=== PATIENT | female | born 1960 | race Caucasian/White ===

== ENCOUNTER → 2017-03-03 | Outpatient (CLI) | payer MEDICAID ==
[~2017-03-03] MED LIST: ALBUTEROL INH INH; MONTELUKAST; OMEPRAZOLE
== END | disposition home or self-care (01) ==
LOC: STAR 13:27
PROVIDERS: ATTEND Urology
DX: Z01.818 Encounter for other preprocedural examination (principal); N20.0 Calculus of kidney; J45.909 Unspecified asthma, uncomplicated
CPT/HCPCS: 81003; 87086

== ENCOUNTER 2017-03-16 10:57 | Day surgery (SDC) | payer MEDICAID ==
[2017-03-03 13:44] VITALS: BP 109/60
[~2017-03-16] VITALS: Ht 180.3 cm; Wt 81.6 kg
[2017-03-16] MEDS ORDERED: LACTATED RINGERS 1,000 ML IV SCH (11:33)
[2017-03-16 11:57] LABS: DAU SCREEN DISCLAIMER
[2017-03-16 12:09] LABS: HCG UR OBC PASS
== END 2017-03-16 13:17 | disposition home or self-care (01) ==
LOC: OUT 10:57
PROVIDERS: ATTEND Urology
DX: N13.2 Hydronephrosis with renal and ureteral calculous obstruction (principal); Z53.9 Procedure and treatment not carried out, unspecified reason; F17.210 Nicotine dependence, cigarettes, uncomplicated; J45.909 Unspecified asthma, uncomplicated; Z98.890 Other specified postprocedural states; Z72.89 Other problems related to lifestyle
CPT/HCPCS: 80307; 81025; J7120

== ENCOUNTER 2020-03-20 10:50 | Emergency (ER) | payer MEDICAID ==
[~2020-03-20] VITALS: Ht 177.8 cm; Wt 65.0 kg
--- NOTE | 2020-03-20 11:14 | NUR ---
APARTMENT MANAGER: PT TO ROOM FROM LOBBY VIA W/C
[2020-03-20] MEDS ORDERED: MORPHINE SULFATE 4 MG/ML, 1ML IVPush PRN (11:30)
[2020-03-20] MEDS ORDERED: SODIUM CHLORIDE 0.9% 1,000ML IVBOLUS ONE (11:30)
[2020-03-20] MEDS ORDERED: ONDANSETRON 2MG/ML, 2ML IVPush ONE (11:30)
[2020-03-20] MEDS ORDERED: SODIUM CHLORIDE FLUSH 10ML SYR IVF ONE (11:30)
[2020-03-20] MEDS ORDERED: MORPHINE SULFATE 4 MG/ML, 1ML ONE (11:40)
[2020-03-20] MEDS ORDERED: ONDANSETRON 2MG/ML, 2ML ONE (11:40)
[2020-03-20 11:58] LABS: BASOPHILS # (AUTO) 0.01 x10^3/uL (0-0.1); BASOPHILS % (AUTO) 0 % (0-1); EOSINOPHILS % (AUTO) 0 % (1-7); LYMPHOCYTES # (AUTO) 0.93 x10^3/uL (1-3.4); LYMPHOCYTES % (AUTO) 10 % (22-44); MD NO; MEAN CORPUSCULAR HEMOGLOBIN 32.3 pg (27.0-34.8); MEAN CORPUSCULAR HGB CONC 33.9 g/dL (32.4-35.8); MEAN CORPUSCULAR VOLUME 95.4 fL (80-100); MEAN PLATELET VOLUME 9.2 fL (7.4-10.4); MONOCYTES # (AUTO) 0.05 x10^3/uL (0.2-0.8); MONOCYTES % (AUTO) 1 % (2-9); NEUTROPHILS # (AUTO) 8.58 x10^3/uL (1.8-6.8); NEUTROPHILS % (AUTO) 90 % (42-75); PLATELET COUNT 245 x10^3/uL (130-400); RED BLOOD COUNT 4.93 x10^6/uL (3.82-5.3); RED CELL DISTRIBUTION WIDTH 13.9 % (9.6-15.2)
[2020-03-20 12:11] LABS: ALANINE AMINOTRANSFERASE 21 U/L (12-78); ALBUMIN 4.4 g/dL (3.4-5.0); ANION GAP 6 mmol/L (5-15); CHLORIDE 107 mmol/L (98-107); CREATININE 0.75 mg/dL (0.55-1.02)
[2020-03-20 12:13] LABS: ALKALINE PHOSPHATASE 93 U/L (45-117); BILIRUBIN,TOTAL 0.9 mg/dL (0.2-1.0); TOTAL PROTEIN 7.8 g/dL (6.4-8.2)
[2020-03-20 12:16] VITALS: BP 151/74
--- NOTE | 2020-03-20 12:19 | NUR ---
PT RESTING COMFORTABLY ON GURPONCHO. SARAHI. PT STATES PAIN IS BETTER. "I FELL ASLEEP".
--- NOTE | 2020-03-20 12:41 | NUR ---
ALL RESULTS BACK AT THIS TIME. CHART UP FOR REHCECK.
--- NOTE | 2020-03-20 12:55 | NUR ---
PT GIVEN WATER FOR PO CHALLENGE. PT PASSED PO CHALLENGE.
--- NOTE | 2020-03-20 13:08 | NUR ---
MD AT BEDSIDE TO UPDATE PT ON POC.
== END 2020-03-20 13:24 | disposition home or self-care (01) ==
LOC: ED 11:29
DX: K52.9 Noninfective gastroenteritis and colitis, unspecified (principal); R50.9 Fever, unspecified; R10.84 Generalized abdominal pain; R11.2 Nausea with vomiting, unspecified; R94.31 Abnormal electrocardiogram [ECG] [EKG]
CPT/HCPCS: 36415; 74022; 80053; 83605; 83690; 85025; 93005; 96361; 96374; 96375; 99285; J2270; J2405; J7030